=== PATIENT | male | born 1985 | race Caucasian/White ===

== ENCOUNTER 2019-01-11 18:15 | Emergency (ER) | payer OTHER ==
[~2019-01-11] VITALS: Ht 185.4 cm; Wt 102.3 kg
[2019-01-11 18:16] VITALS: BP 131/77
[2019-01-11] MEDS ORDERED: BACITRACIN ZINC OINT 500U/GM, 0.9 GM ONE (19:14)
[2019-01-11] MEDS ORDERED: DIPH,PERTUSS(ACELL),TET VAC/PF 0.5 ML IM-VACC ONE ×2 (19:14→19:30)
--- NOTE | 2019-01-11 19:21 | NUR ---
MEDICATED PER [facility] EMT AT BEDSIDE IRRIGATING AND DRESSING HAND LACERATION
== END 2019-01-11 19:28 | disposition home or self-care (01) ==
LOC: ED 18:46
DX: S61.202A Unspecified open wound of right middle finger without damage to nail, initial encounter (principal); W31.89XA Contact with other specified machinery, initial encounter; Y93.89 Activity, other specified; Y92.009 Unspecified place in unspecified non-institutional (private) residence as the place of occurrence of the external cause; Y99.8 Other external cause status
CPT/HCPCS: 90471; 90715

== ENCOUNTER 2019-09-15 14:17 | Emergency (ER) | payer SELFPAY ==
[~2019-09-15] VITALS: Ht 182.9 cm; Wt 102.6 kg
[2019-09-15 14:21] VITALS: BP 141/89
--- NOTE | 2019-09-15 15:25 | NUR ---
additional shoulder xr ordered, pt walked to xr. as
== END 2019-09-15 16:07 | disposition home or self-care (01) ==
LOC: ED 16:01
DX: S43.102A Unspecified dislocation of left acromioclavicular joint, initial encounter (principal); M94.0 Chondrocostal junction syndrome [Tietze]; X58.XXXA Exposure to other specified factors, initial encounter; Y93.89 Activity, other specified; Y92.89 Other specified places as the place of occurrence of the external cause; Y99.8 Other external cause status
CPT/HCPCS: 71046; 99283